=== PATIENT | male | born 1955 | race Hispanic/Latino ===

== ENCOUNTER 2017-12-15 07:28 | Observation (INO) | payer OTHER ==
[2017-12-14 16:00] LABS: BASOPHILS # (AUTO) 0.1 (0.0-0.1); BASOPHILS % 1.5 % (0.0-1.0); EOSINOPHILS # (AUTO) 0.2 (0.0-0.4); HEMATOCRIT 43.2 % (38.2-49.6); HEMOGLOBIN 14.6 g/dL (14.0-18.0); LYMPHOCYTES # (AUTO) 2.1 (1.0-3.2); LYMPHOCYTES % 35.2 % (18.0-39.1); MEAN CORPUSCULAR HEMOGLOBIN 28.4 pg (28-32); MEAN CORPUSCULAR HGB CONC 33.8 g/dL (31-35); MONOCYTES # (AUTO) 0.6 (0.2-0.8); MONOCYTES % 9.2 % (4.4-11.3); NEUTROPHILS # (AUTO) 3.1 (2.1-6.9); NEUTROPHILS % 50.9 % (38.7-80.0); PLATELET COUNT 219 x10e3/uL (140-360); RED BLOOD COUNT 5.14 x10e6/uL (4.3-5.7); RED CELL DISTRIBUTION WIDTH 12.5 % (11.7-14.4)
[2017-12-14 16:13] LABS: INR 0.8; PROTHROMBIN TIME 11.9 seconds (11.9-14.5)
[2017-12-14 16:22] LABS: ALANINE AMINOTRANSFERASE 35 IU/L (0-55); ALBUMIN/GLOBULIN RATIO 0.9 (0.8-2.0); ALKALINE PHOSPHATASE 99 IU/L (40-150); ANION GAP 12.2 mmol/L (8-16); BLOOD UREA NITROGEN 13 mg/dL (7-26); BUN/CREATININE RATIO 13 (6-25); CALCIUM 10.1 mg/dL (8.4-10.2); CARBON DIOXIDE 28 mmol/L (22-29); CHLORIDE 96 mmol/L (98-107); CHOL/HDL RATIO 7.1 (3.9-4.7); CHOLESTEROL 227 MD/DL (0-199); CREATININE, SERUM 0.98 mg/dL (0.72-1.25); EST GLOMERULAR FILTRATION RATE > 60 ML/MIN (60-); GLUCOSE 190 mg/dL (74-118); HDL CHOLESTEROL 32 MG/DL (40-60); POTASSIUM 4.2 mmol/L (3.5-5.1); SODIUM 132 mmol/L (136-145); TRIGLYCERIDES 965 MG/DL (0-149)
[~2017-12-15] VITALS: Ht 170.2 cm; Wt 108.0 kg
[2017-12-15] VITALS (23 sets, daily range): BP systolic 48–175; BP diastolic 48–86
[2017-12-15] MEDS ORDERED: MIDAZOLAM HCL 2 MG/2 ML VIAL ONE (08:27)
[2017-12-15] MEDS ORDERED: FENTANYL CITRATE/PF 100MCG/2 ML INJ ONE (08:27)
[2017-12-15] MEDS ORDERED: LIDOCAINE HCL 1% LOCAL INJ 20 ML VIAL ONE (08:28)
[2017-12-15] MEDS ORDERED: HEPARIN SOD/SOD CHLORIDE 2,000 ML ONE (08:28)
[2017-12-15] MEDS ORDERED: IOPAMIDOL 370 MG/ML 200 ML INFUS..BTL INJ ONE ×2 (08:28→09:16)
[2017-12-15] MEDS ORDERED: SODIUM CHLORIDE 0.9% 1000ML 1,000 ML ONE ×2 (08:28→12:21)
[2017-12-15] MEDS ORDERED: NITROGLYCERIN/D5W 200 MCG/ML 250 ML ONE (09:05)
[2017-12-15] MEDS ORDERED: HEPARIN SOD (PORCINE) 1000 UNIT/ML 30ML ONE (09:05)
[2017-12-15] MEDS ORDERED: TICAGRELOR 90 MG TABLET ONE ×2 (09:19→09:22)
[2017-12-15] MEDS ORDERED: ASPIRIN 325 MG TAB ONE (09:19)
--- NOTE | 2017-12-15 10:41 | Operative Report ---
DATE OF PROCEDURE: December 15, 2017 PROCEDURE INDICATIONS: Severe mixed dyslipidemia, familial, presenting with crescendo unstable angina, refractory to medical therapy, CCS-3. PROCEDURES PERFORMED 1. Left heart catheterization. 2. Selective coronary angiography. 3. Right coronary artery drug-eluting stent percutaneous coronary intervention with mid-right coronary artery 2.75 x 22 Resolut [place], 2.75 x 38 Resolut [place] to the distal right coronary artery, and the cusp at the level of the right coronary artery at 2.25 x 12 extending into the RPLV, again Resolut [place]eluis. COMPLICATIONS: None. ESTIMATED BLOOD LOSS: Less than 15 mL. PROCEDURE SUMMARY: After consent was obtained, the patient was prepped and draped in a sterile fashion. The right femoral side was locally infiltrated with 2% lidocaine. With micropuncture kit, access was obtained to the right common femoral artery, and a 6-Greek sheath was placed. A JL4 6-Greek catheter was used to engage the left vein and angiography obtained in multiple views. A JR4 6-Greek catheter was used to engage the left coronary artery and angiography obtained in multiple views. Intervention of a AR1 double side hole 6-Greek guide catheter was used to engage the RCA. Run through wire to the stenosis and was placed in the distal RPLV. Aspirin 81 mg and Brilinta 180 mg were given for preloading in addition to IV heparin to maintain ACT of 250. A Resolut [place] was deployed as primary stent to the level of the RCA. It was a 2.25 x 12 deployed to 12 atmospheres. The distal RCA was stented with a 2.75 x 38 Resolut [place] to 15 atmospheres. The mid-RCA stented with a Resolut [place] 2.75 x 22 deployed to 15 atmospheres. Final angiography reveals KELI-III flow from preprocedure KELI-III flow. Stenosis of area of the mid-RCA was 80, the distal RCA 80 and the proximal was 70%. Post intervention, residual stenosis was zero percent. FINDINGS 1. Left main large in caliber with luminal irregularities of the LAD, ramus intermedius and circumflex. 2. LAD has luminal irregularities that gives diagonal and septal perforators as it courses through the apex. 3. The ramus intermedius is small in caliber with luminal irregularities. 4. The circumflex is large in caliber with luminal irregularities. It gives an obtuse marginal, but has about 2 mm in caliber and proximal area of 60% to 70% eccentric stenosis. 5. LV-gram reveals preserved left ventricular systolic function. Normal regional wall motion and left ventricular ejection fraction of 60% to 65%. 6. LV pressure was 144/15 with end-diastolic pressure of 32. 7. Aortic pressure was 140/62. CONCLUSION: Successful drug-eluting stent percutaneous coronary intervention of the right coronary artery, complex tandem lesions with excellent electrographic results. Residual moderate to severe with largest 2.25 mm obtuse marginal eccentric 60% to 70% stenosis. RECOMMENDATIONS: Aggressive risk factor optimization. Aspirin and Brilinta. Heparin and IV fluids. Job#: [id number] DC
[2017-12-15] MEDS ORDERED: AMLODIPINE BESYL5 MG PO (12:35)
[2017-12-15] MEDS ORDERED: METOPROLOL SUCC25 MG PO (12:35)
[2017-12-15] MEDS ORDERED: LISINOPRIL10 MG PO (12:35)
[2017-12-15] MEDS ORDERED: ASPIRIN CHEW81 MG PO (12:35)
[2017-12-15] MEDS ORDERED: ZETIA10 MG PO (12:35)
[2017-12-15] MEDS ORDERED: DOXAZOSIN MESYLA2 MG PO (12:35)
[2017-12-16 01:15] VITALS: BP 135/63
[2017-12-16 04:45] VITALS: BP 149/71
[2017-12-16 07:29] VITALS: BP 144/71
[2017-12-16] MEDS ORDERED: LISINOPRIL 20 MG TAB PO SCH (09:00)
[2017-12-16] MEDS ORDERED: ASPIRIN 81 MG ENTERIC COATED PO SCH (09:00)
[2017-12-16] MEDS ORDERED: TICAGRELOR 90 MG TABLET PO SCH (09:00)
[2017-12-16] MEDS ORDERED: METOPROLOL SUCCINATE 25 MG TAB XL PO SCH (09:00)
[2017-12-16] MEDS ORDERED: ASPIRIN 325 MG TAB PO SCH (09:00)
[2017-12-16] MEDS ORDERED: AMLODIPINE BESYLATE 5 MG TAB PO SCH (09:00)
[2017-12-16] MEDS ORDERED: LISINOPRIL 10 MG TAB PO SCH (09:00)
[2017-12-16] MEDS ORDERED: EZETIMIBE 10 MG TAB PO SCH (09:00)
[2017-12-16 09:39] VITALS: BP 144/71
[2017-12-16] MEDS ORDERED: ATORVASTATIN 40 MG TAB PO SCH (10:15)
[2017-12-16] MEDS ORDERED: BRILINTA90 MG PO (10:36)
[2017-12-16] MEDS ORDERED: LIPITOR20 MG PO (10:37)
[2017-12-16 11:23] VITALS: BP 124/80
--- NOTE | 2017-12-16 13:15 | Discharge Summary ---
ADMITTING AND DISCHARGING PHYSICIAN: Dr. Peter Dillard, interventional cardiology. DATE PLACED IN OBSERVATION: 12/15/2017 DATE OF DISCHARGE FROM OBSERVATION: 12/16/2017 ADMITTING DIAGNOSES 1. Unstable angina with coronary artery disease, multivessel, status post right coronary artery drug-eluting stent percutaneous coronary intervention. 2. Hypertension. 3. Severe dyslipidemia and obesity. DISCHARGE DIAGNOSES 1. Unstable angina with coronary artery disease, multivessel, status post right coronary artery drug-eluting stent percutaneous coronary intervention. 2. Hypertension. 3. Severe dyslipidemia and obesity. HOSPITAL SUMMARY: Patient underwent a successful right coronary artery drug-eluting stent complex PCI with excellent results. Residual OM 60-70% eccentric stenosis noted and discussed with patient plan of care, followup as outpatient. Continue atorvastatin 80 and Zetia 10 mg daily for severe dyslipidemia as well as aggressive lifestyle modification. Aspirin and Brilinta provided with prescriptions for patient and patient advised on importance of adherence to medications. No complications postoperatively. Patient discharged home with plan of care and restriction provided upon discharge. Please see medication reconciliation form for further details. Follow up with primary care provider in 4 to 6 weeks and with cardiology in 4 weeks. DISPOSITION: Discharged to home for self care. PETER HAN MD Job#: [id number] [facility]ECHELLE
== END 2017-12-16 11:20 | disposition home or self-care (01) ==
LOC: CATH LAB 07:28 → CATH LAB V 12:23 → IMCU 13:05
PROVIDERS: ADMIT Internal Medicine Cardiovascular Disease; ATTEND Internal Medicine Cardiovascular Disease
DX: I25.110 Atherosclerotic heart disease of native coronary artery with unstable angina pectoris (principal); I10 Essential (primary) hypertension; E78.01 Familial hypercholesterolemia; E66.01 Morbid (severe) obesity due to excess calories; E11.22 Type 2 diabetes mellitus with diabetic chronic kidney disease; N18.3 Chronic kidney disease, stage 3 (moderate); E78.2 Mixed hyperlipidemia; Z01.810 Encounter for preprocedural cardiovascular examination; Z01.812 Encounter for preprocedural laboratory examination
CPT/HCPCS: 36415; 80053; 80061; 83036; 85025; 85347; 85610; 92928; 93005; 93458; C1769; C1817; C1874 ×2; C1887; G0378 ×2; J1644; J2001; J2250; J7030; Q9967